=== PATIENT | male | born 1980 | race Caucasian/White ===

== ENCOUNTER 2019-01-08 15:43 | Emergency (ER) | payer SELFPAY ==
[~2019-01-08] VITALS: Ht 177.8 cm; Wt 81.8 kg
[2019-01-08 15:50] VITALS: BP 161/111
[2019-01-08] MEDS ORDERED: POVIDONE-IODINE 10% 15 ML SOLUTION UD TP ONE (17:15)
== END 2019-01-08 17:44 | disposition home or self-care (01) ==
LOC: EMS 15:43
DX: S90.862A Insect bite (nonvenomous), left foot, initial encounter (principal); L03.116 Cellulitis of left lower limb; W57.XXXA Bitten or stung by nonvenomous insect and other nonvenomous arthropods, initial encounter; Y93.89 Activity, other specified; Y92.89 Other specified places as the place of occurrence of the external cause; Y99.8 Other external cause status